=== PATIENT | female | born 1995 | race Caucasian/White ===

== ENCOUNTER → 2017-09-17 14:33 | Outpatient (CLI) | payer OTHER, SELFPAY ==
[2017-09-20 11:08] LABS: Neisseria gonorrhoeae, NAA Negative (Negative)
== END ==
PROVIDERS: PCP Nurse Practitioner Obstetrics & Gynecology; Visit Provider Nurse Practitioner Obstetrics & Gynecology
DX: Z20.2 Contact with and (suspected) exposure to infections with a predominantly sexual mode of transmission (principal)
CPT/HCPCS: 87491; 87591

== ENCOUNTER → 2020-12-30 11:10 | Outpatient (CLI) | payer OTHER, SELFPAY ==
[2020-12-30 11:56] LABS: Basophils % 0.2 % (0.1-2.0); Eosinophils % 0.2 % (0.1-12.0); Hematocrit 38.1 % (37.0-47.0); Hemoglobin 12.3 g/dL (12.2-16.2); Lymphocytes # 2.2 K/mm3 (0.7-4.5); Mean Corpuscular HGB Conc 32.4 g/dL (31.8-35.4); Mean Corpuscular Hemoglobin 29.1 pg (27.0-31.2); Mean Corpuscular Volume 89.8 fl (81-99); Mean Platelet Volume 7.5 fl (7.4-10.4); Monocytes # 0.5 K/mm3 (0.1-1.0); Monocytes % 5.4 % (1.7-9.3); Neutrophils # 6.5 K/mm3 (1.8-7.8); Neutrophils % 70.2 % (37.0-80.0); Platelet Count 368 K/mm3 (142-424); Red Blood Count 4.24 M/mm3 (4.20-5.40); White Blood Count 9.3 K/mm3 (4.8-10.8)
--- NOTE | 2020-12-30 13:16 | US_ITS ---
PROCEDURE: US OB <= 14 WEEKS FETUS CLINICAL INDICATION: for dates COMPARISON: No exams were available for comparison FINDINGS: An intrauterine gestational sac is present with a pole with a crown-rump length of 1.05cm correlating to gestational age of 7weeks 2days. heart tones are present with an FHR of 138bpm. Yolk sac is noted. Cysts are noted in the ovaries bilaterally, measuring up to 1.5 centimeters. IMPRESSION: Single viable intrauterine gestation with gestational age of 7 weeks and 2 days. Estimated due date by Ultrasound is 08/16/2021 Dictated by: Chata Garcia 12/30/2020 16:50 Chata Garcia in [facility] 12/30/2020 16:50
[2020-12-31 06:45] LABS: HIV Screen 4th Generation wRfx Non Reactive (Non Reactive)
[2021-01-01 10:43] LABS: HSV 1 IgG, Type Spec <0.91 index (0.00-0.90); Hepatitis B Surface Antigen Negative (Negative); Hepatitis C Antibody <0.1 s/co ratio (0.0-0.9); Rubella Antibodies, IgG 9.44 index (Immune >0.99)
[2021-01-01 10:44] LABS: Rapid Plasma Reagin Ab Titer Non Reactive (NonRea<1:1)
== END ==
PROVIDERS: PCP Nurse Practitioner Family; Visit Provider Nurse Practitioner Obstetrics & Gynecology
DX: Z34.90 Encounter for supervision of normal pregnancy, unspecified, unspecified trimester (principal); Z3A.08 8 weeks gestation of pregnancy
CPT/HCPCS: 36415; 76801; 85025; 86592; 86695; 86703; 86762; 86790; 86850; 87340; 87380; G0432

== ENCOUNTER → 2021-02-24 17:32 | Outpatient (CLI) | payer OTHER, SELFPAY ==
[2021-02-27 20:29] LABS: Neisseria gonorrhoeae, NAA Negative (Negative)
== END ==
PROVIDERS: Visit Provider Nurse Practitioner Obstetrics & Gynecology
DX: Z34.91 Encounter for supervision of normal pregnancy, unspecified, first trimester (principal); Z72.51 High risk heterosexual behavior
CPT/HCPCS: 87491; 87591

== ENCOUNTER → 2021-03-24 10:11 | Outpatient (CLI) | payer BC, SELFPAY ==
--- NOTE | 2021-03-24 10:12 | US_ITS ---
PROCEDURE: US OB /MATERNAL DETAIL CLINICAL INDICATION: 20 weeks gestation Anatomy exam COMPARISON: US US OB <= 14 WEEKS FETUS from 12/30/2020 FINDINGS: There is a single live fetus in cephalic presentation. The cervix is closed at 4 cm. The placenta is anterior and grade 1. Complete survey performed and was unremarkable on the submitted images as in PACS. No discrete anomalies identified on survey imaging by technologist. Active fetus. Three-vessel cord with satisfactory umbilical cord insertion. 4- chamber heart noted. Survey of brain & ventricles Unremarkable. Face and neck survey unremarkable. Diaphragm and chest views unremarkable. Abdomen: Both kidneys noted and unremarkable. Stomach noted and satisfactory. Spine: Survey of the spine satisfactory with no anomalies identified nor imaged. Both arms and legs noted. Amniotic Fluid: Adequate. Maternal adnexa: No significant findings. Measurements: Average ultrasound age 19weeks 4days. Gestational Age 19weeks 4days Estimated due date by ultrasound age 1208/14/2021. Estimated weight 304g BPD = 19weeks 3days OFD = 19weeks 2days HC = 18weeks 5days AC = 19weeks 2days FL = 20weeks 3days Growth Percentile= 67% Heart Rate = 142bpm Cerebellum = 19weeks 4days Humerus = 19weeks 6days HC/AC is 1.14 CI is 0.81 FL/BPD is 0.75 FL/AC is 0.24 IMPRESSION: Live IUP in cephalic presentation with an average ultrasound age of 19 weeks 4 days. No obvious anomalies. Please see above for detail. Dictated by: Kendell Kauffman MD 03/24/2021 12:56 Kendell Kauffman MD in [facility] 03/24/2021 12:56
== END ==
PROVIDERS: PCP Nurse Practitioner Family; Visit Provider Nurse Practitioner Obstetrics & Gynecology
DX: Z34.90 Encounter for supervision of normal pregnancy, unspecified, unspecified trimester (principal); Z3A.20 20 weeks gestation of pregnancy
CPT/HCPCS: 76811

== ENCOUNTER → 2021-05-19 09:13 | Outpatient (CLI) | payer BC, SELFPAY ==
[2021-05-19 09:40] LABS: Glucose,Fasting 82 mg/dl (74-100)
[2021-05-19 11:18] LABS: Glucose 1 Hour 121 mg/dL (74-100)
== END ==
PROVIDERS: Visit Provider Nurse Practitioner Obstetrics & Gynecology
DX: Z34.90 Encounter for supervision of normal pregnancy, unspecified, unspecified trimester (principal)
CPT/HCPCS: 36415; 82951

== ENCOUNTER → 2021-07-12 13:46 | Outpatient (CLI) | payer BC, SELFPAY | PROVIDERS: Visit Provider Nurse Practitioner Obstetrics & Gynecology | DX: Z34.90 Encounter for supervision of normal pregnancy, unspecified, unspecified trimester (principal); Z3A.35 35 weeks gestation of pregnancy | CPT/HCPCS: 86403 ==

== ENCOUNTER → 2021-08-06 14:09 | Outpatient (CLI) | payer BC, SELFPAY | PROVIDERS: Visit Provider Nurse Practitioner Obstetrics & Gynecology | DX: Z01.812 Encounter for preprocedural laboratory examination; Z11.52 Encounter for screening for COVID-19 | CPT/HCPCS: C9803; U0003; U0005 ==

== ENCOUNTER 2021-08-08 04:40 | Inpatient (IN) | payer BC, SELFPAY ==
[2021-08-08 04:44] VITALS: BMI 34.4
[2021-08-08 05:23] VITALS: BP 124/80; PULSE 90; RESP 20; TEMP 37.1; O2SAT 100; BMI 71.5
[2021-08-08 06:06] LABS: Basophils % 0.3 % (0.1-2.0); Eosinophils # 0.1 K/mm3 (0.0-0.4); Eosinophils % 0.9 % (0.1-12.0); Hematocrit 32.5 % (37.0-47.0); Lymphocytes # 2.7 K/mm3 (0.7-4.5); Lymphocytes % 29.9 % (10-50); Mean Corpuscular HGB Conc 33.9 g/dL (31.8-35.4); Mean Corpuscular Hemoglobin 28.7 pg (27.0-31.2); Mean Corpuscular Volume 84.6 fl (81-99); Mean Platelet Volume 8.3 fl (7.4-10.4); Monocytes # 0.5 K/mm3 (0.1-1.0); Monocytes % 5.6 % (1.7-9.3); Neutrophils # 5.6 K/mm3 (1.8-7.8); Neutrophils % 63.2 % (37.0-80.0); Platelet Count 332 K/mm3 (142-424); Red Blood Count 3.85 M/mm3 (4.20-5.40); White Blood Count 8.9 K/mm3 (4.8-10.8)
[2021-08-08 06:06] LABS: Coronavirus 19, PCR Not Detected (NotDetected); Influenza A, PCR Not Detected (NotDetected); Influenza B, PCR Not Detected (NotDetected)
[2021-08-08 06:38] LABS: Benzodiazepines Screen,Urine Negative ng/ml (<200)
[2021-08-08 06:39] LABS: Barbiturates Screen,Urine Negative ng/ml (<200)
[2021-08-08 06:40] LABS: Cannabinoid Screen,Urine Negative ng/ml (<50); Cocaine Screen,Urine Negative ng/ml (<300)
[2021-08-08 06:41] LABS: Methadone Screen,Urine Negative ng/ml (<300)
[2021-08-08 06:42] LABS: Opiate Screen,Urine Negative ng/ml (<300); Phencyclidine Screen,Urine Negative ng/ml (<25)
[2021-08-08 06:45] LABS: Amphetamine/Metha Screen,Urine Negative ng/ml (<1000)
--- NOTE | 2021-08-08 08:36 | HMH.LABNOT ---
Labor Note - Subjective: Date: 08/08/21 Time: 08:36 regular contraction - Objective: NST:: Reactive Contractions:: every 2-3 minutes Cervical Dilation:: 2-3 Effacement:: 75% Station: -2 Membranes: artificially ruptured - Fetus: Monitoring?: Yes monitoring type:: Internal and External Comment:: She continues to do well. We ruptured her membranes and there was clear fluid. I inserted IPC. - Assessment: Labor progressing?: Yes Cephalopelvic disproportion?: No Patient Problems: All Active Problems (Acute) - Plan: Anesthesia for epidural?: Yes Continue to labor down?: Yes Plan for ?: No Continue to monitor?: Yes Start pushing?: No
--- NOTE | 2021-08-08 08:44 | HMH.OBAPHP ---
OB - H&P: HPI Antepartum - History of Present Illness Chief complaint: Term History of present illness: She is a 25-year-old 2 para 1 at 39+ weeks gestational age. She has been having a few contractions and pressure and as result of that we elected to induce her labor at term. - History of Present Criteria for establishing EDC:: LMP confirmed by 1st trimester US care: good care Ultrasounds: normal 1st trimester US, normal mid trimester US Obstetrical complications: none Medical complications: none - Labs Blood type: B (+) positive Rubella: immune RPR/VDRL: nonreactive GBS status: positive HBsAG: negative [facility] History I have reviewed the patient's past medical history: Yes Medical History: Reports:: Depression Denies:: Anxiety, Migraine, Seizures *Have you ever received a pneumonia vaccine?: No *Have you received a flu vaccine this season?: No Other Surgeries: Yes: No Previous Surgery. No: Amputation: No Fractures: No - *Social History Smoking Status: Never smoker Alcohol Intake: never Alcohol Intake Frequency:: holidays/special occasions only Substance Use Type: denies use *Occupational Status:: employed *Travel in the last 8 weeks: None - Psychiatric History Pschychiatric History:: Reports:: Depression Denies:: Anxiety Family Hx:: Hypertension, Hyperlipidemia, Cancer SALES AND MARKETING COORDINATOR history: no No SALES AND MARKETING COORDINATOR history, no Non-contributory, no Spontaneous , no Therapeutic , no Cervical Cancer, no Abnormal Uterine Bleeding, no Ovarian Cancer, no dysfunctional uterine bleed, no Endometriosis, no Ectopic , no Polycystic Ovary Syndrome, no Uterine Fibroids, no Tubal Ligation, no , no Failure to Progress, no Additional SALES AND MARKETING COORDINATOR History Para: 1 Review of Systems - Review of Systems Review of systems:: pertinent systems reviewed and negative unless documented below Meds Home Medications Medication Instructions Recorded Confirmed Type Citalopram Hydrobromide 10 mg PO DAILY 08/08/21 History [Citalopram HBr] Pnv No.153/FA/Om3/Dha/Epa/Fish 1 tab PO DAILY 08/08/21 History [ Gummies] Valacyclovir HCl [Valacyclovir] 500 mg PO DAILY 08/08/21 History Allergies Allergy/AdvReac Type Severity Reaction Status Date / Time No Known Allergies Allergy Verified 08/04/21 09:45 OB - H&P: Exam - Physical Exam Vital signs: Temp Pulse Resp BP Pulse Ox 98.8 F 90 20 124/80 100 08/08/21 05:23 08/08/21 05:23 08/08/21 05:23 08/08/21 05:23 08/08/21 05:23 - Constitutional no acute distress - Routine HEENT Exam Head: Present: normocephalic Eye: Present: EOMI, PERRL ENT: Present: mucous membranes moist - Routine Neck Exam Present: supple, full ROM - Routine Respiratory Exam Absent: accessory muscle use (good air entry bilaterally), respiratory distress, wheezes, crackles - Routine Cardiovascular Exam Present: RRR. Absent: murmur - Routine Abdominal Exam Present: soft, normoactive bowel sounds. Absent: tenderness, distended, guarding - Routine Rectal Exam Patient deferred: visual exam, digital exam - Routine Exam Patient deferred: external exam, groin exam, perineal exam - Routine Extremities Exam Present: full ROM. Absent: cyanosis, edema - Routine Skin Exam Present: intact. Absent: cyanosis - Routine Neurological Exam Present: alert, oriented X3 - Routine Psychiatric Exam Present: normal affect OB - Results - Labs Labs: Short CBC 08/08/21 Range/Units 05:15 WBC 8.9 (4.8-10.8) K/mm3 Hgb 11.0 L (12.2-16.2) g/dL Hct 32.5 L (37.0-47.0) % Plt Count 332 (142-424) K/mm3 OB - A/P Antepartum (1) Normal delivery at term Status: Acute - Additional Plan Planning to breastfeed?: Yes Plan: induction Additional Information:: We have ruptured her membranes and she is on oxytocin. We will expect a vaginal delivery.
--- NOTE | 2021-08-08 11:00 | HMH.ANESCL ---
[facility] Anesthesia Checklist - Patient Identification Patient Identification: Arm Band - Structural Data Admitted From: Home Planned Operative Procedure/s: labor epidural Consent for Planned Operative Procedure(s) Verified: Yes Verified Documents: Surgical Consent, History and Physical - NPO Status Verified Time NPO: 00:00 - Additional verifications Anesthesia Reactions: No - Airway Assessment C-Spine Mobility Assessed: Yes (mp2) TMJ Mobility Assessed: Yes Dentition: Good Dentition - Neurological Assessment Level of Consciousness: Awake, Alert - Anesthesia Plan Anesthesia Risk discussed: Yes Anesthesia Plan: Verified ASA Class: II Anesthesia Type: Epidural [facility] History I have reviewed the patient's past medical history: Yes Medical History: Reports:: Depression Denies:: Anxiety, Migraine, Seizures *Have you ever received a pneumonia vaccine?: No *Have you received a flu vaccine this season?: No Anesthesia experience/problems:: nac Other Surgeries: Yes: No Previous Surgery. No: Amputation: No Fractures: No - *Social History Smoking Status: Never smoker Alcohol Intake: never Alcohol Intake Frequency:: holidays/special occasions only Substance Use Type: denies use *Occupational Status:: employed *Travel in the last 8 weeks: None - Psychiatric History Pschychiatric History:: Reports:: Depression Denies:: Anxiety Family Hx:: Hypertension, Hyperlipidemia, Cancer WOOD DOWEL MACHINE OPERATOR history: no No WOOD DOWEL MACHINE OPERATOR history, no Non-contributory, no Spontaneous , no Therapeutic , no Cervical Cancer, no Abnormal Uterine Bleeding, no Ovarian Cancer, no dysfunctional uterine bleed, no Endometriosis, no Ectopic , no Polycystic Ovary Syndrome, no Uterine Fibroids, no Tubal Ligation, no , no Failure to Progress, no Additional WOOD DOWEL MACHINE OPERATOR History Para: 1
--- NOTE | 2021-08-08 11:16 | HMH.LABNOT ---
Labor Note - Subjective: Date: 08/08/21 Time: 11:16 regular contraction - Objective: NST:: Reactive Contractions:: every 2-3 minutes Cervical Dilation:: 4 Effacement:: 80% Membranes: artificially ruptured - Fetus: Monitoring?: Yes monitoring type:: Internal and External - Assessment: Labor progressing?: Yes Cephalopelvic disproportion?: No Patient Problems: All Active Problems Normal delivery at term (Acute) (Acute) - Plan: Anesthesia for epidural?: Yes Continue to labor down?: Yes Plan for ?: No Continue to monitor?: Yes Start pushing?: No
--- NOTE | 2021-08-08 13:57 | HMH.LABNOT ---
Labor Note - Subjective: Date: 08/08/21 Time: 13:57 regular contraction - Objective: NST:: Reactive Contractions:: every 2-3 minutes Cervical Dilation:: 4-5 Effacement:: 90% Station: -2 Membranes: artificially ruptured - Fetus: Monitoring?: Yes monitoring type:: Internal and External - Assessment: Labor progressing?: Yes Cephalopelvic disproportion?: No Patient Problems: All Active Problems Normal delivery at term (Acute) (Acute) - Plan: Anesthesia for epidural?: Yes Continue to labor down?: Yes Plan for ?: No Continue to monitor?: Yes Start pushing?: No
[2021-08-08 15:39] LABS: Microscopic, Urine URINE MICROSCOPIC (MICROSCOPIC)
[2021-08-08 15:42] LABS: Appearance,Urine SL CLOUDY (Clear); Bilirubin,Urine Negative (Negative); Blood, Urine Negative (Negative); Color,Urine YELLOW (Yellow); Glucose,Urine (UA) Negative (Negative); Ketones,Urine Negative (Negative); Leukocyte Esterase,Urine Negative (Negative); Nitrate,Urine Negative (Negative); Protein,Urine TRACE (Negative); Specific Gravity, Urine >= 1.030 (1.005-1.030); Urobilinogen,Urine 0.2 EU/dl (0.2)
[2021-08-08 15:54] LABS: Bacteria,Urine Trace /lpf; RBC,Urine Occasional #/hpf (0-3)
--- NOTE | 2021-08-08 16:20 | HMH.LABNOT ---
Labor Note - Subjective: Date: 08/08/21 Time: 16:20 regular contraction - Objective: NST:: Reactive Contractions:: every 2-3 minutes Cervical Dilation:: 6 Effacement:: 90% Station: -1 Membranes: artificially ruptured - Fetus: Monitoring?: Yes monitoring type:: Internal and External - Assessment: Labor progressing?: Yes Cephalopelvic disproportion?: No Patient Problems: All Active Problems Normal delivery at term (Acute) (Acute) - Plan: Anesthesia for epidural?: Yes Continue to labor down?: Yes Plan for ?: No Continue to monitor?: Yes Start pushing?: No
--- NOTE | 2021-08-08 17:40 | HMH.DN ---
- Delivery Note Delivery Date:: 08/08/21 Delivery Time:: 17:29 Anesthesia Type: Epidural Was labor medically induced?: Yes Induction method: per misoprostol protocol Gestational age (weeks): 39 Infant delivered prior to 39 weeks?: No Infant Gender: Female at 1 minute: 8 at 5 minutes: 9 LAC or MLE?: LAC Delivery Procedure:: She is a 25-year-old 2 para 1 at 39 weeks gestational age. She had some contractions and pressure and as result of that we elected to induce her labor at term. She was started on IV oxytocin had her membranes ruptured. Under labor epidural progressed to full dilation and delivered spontaneously a liveborn female child at 5:29 PM in the evening of 08/08/2021. On deliver the head the anterior shoulder then easily delivered followed by the rest the infant's body atraumatically. The baby was vigorous. We allowed the cord to continue to pulsate for approximately 1 minute. The baby's oropharynx and nasopharynx were bulb suctioned. After 1 minute the cord was doubly clamped and cut and the infant was placed on the mother's abdomen for further care. The nurse assigned Apgars of 8 at 1 minute and 9 at 5 minutes. We then obtained cord blood. She had a small left labial tear that was repaired with interrupted 3-0 Vicryl Rapide suture. She received IV oxytocin using gentle traction on the cord and countertraction on the fundus I was able to easily deliver the placenta at 5:34 PM. He had a normal three-vessel cord. She has been positive blood, she is rubella immune and was group B streptococcus positive. She did receive IV antibiotics while in labor. Estimated blood loss was approximately 150 cc. Laceration:: labial Placental Delivery Description: Spontaneous
[2021-08-08 19:57] VITALS: BP 139/80; PULSE 77; RESP 16; TEMP 36.8; O2SAT 97
[2021-08-09 03:42] VITALS: BP 134/86; PULSE 75; RESP 18; TEMP 36.9; O2SAT 99
[2021-08-09 07:52] VITALS: BP 130/75; PULSE 77; RESP 18; TEMP 36.7; O2SAT 99
[2021-08-09 08:39] LABS: Hematocrit 32.2 % (37.0-47.0); Hemoglobin 10.6 g/dL (12.2-16.2)
[2021-08-09 12:19] VITALS: BP 114/73; PULSE 69; RESP 16; TEMP 36.6; O2SAT 99
--- NOTE | 2021-08-09 12:27 | P.PN_ITS ---
Internal Medicine - PN: Subj *Date: 08/09/21 *Time: 12:27 Interval history: She is 1 day from a vaginal delivery. She is doing very well. We will plan to send her home tomorrow. She is bottlefeeding. Her lochia is normal. Exam Vital signs and Labs for Last 24 Hours: Temp Pulse Resp BP Pulse Ox 98.0 F 77 18 130/75 99 08/09/21 07:52 08/09/21 07:52 08/09/21 07:52 08/09/21 07:52 08/09/21 07:52 Laboratory Results - last 24 hr 08/08/21 05:20: Urine Color Yellow, Urine Appearance Sl cloudy, Urine pH 6.0, Ur Specific Marshall >= 1.030, Urine Protein Trace, Urine Glucose (UA) Negative, Ur ine Ketones Negative, Urine Blood Negative, Urine Nitrate Negative, Urine Bilirubin Negative, Urine Urobilinogen 0.2, Ur Leukocyte Esterase Negative, Urine RBC Occasional, Urine WBC 3-5, Ur Squamous Epith Cells 3-5, Urine Bacteria Trace 08/09/21 08:25: Hgb 10.6 L, Hct 32.2 L I & O for Last 24 hours: Intake & Output 08/07/21 08/08/21 08/09/21 08/10/21 11:59 11:59 11:59 11:59 Weight 443 lb 2.066 oz - Constitutional no acute distress - *Routine HEENT Exam Head: Present: normocephalic Eye: Present: EOMI, PERRL ENT: Present: mucous membranes moist Assessment and Plan (1) Normal delivery at term Status: Acute Category: Medical Code(s): O80 - Encounter for full-term uncomplicated delivery - Assessment and plan all Dx Assessment and Plan for all problems:: She continues to do well. She is bottlefeeding. We will plan to send her home tomorrow.
[2021-08-09 15:42] VITALS: BP 124/80; PULSE 68; RESP 18; TEMP 36.7; O2SAT 99
[2021-08-09 20:15] VITALS: BP 118/65; PULSE 65; RESP 18; TEMP 36.7; O2SAT 98
[2021-08-10 04:14] VITALS: BP 144/69; PULSE 71; RESP 17; TEMP 36.6; O2SAT 100
--- NOTE | 2021-08-10 09:58 | P.DS_ITS ---
General - General Admission date:: 08/08/21 Discharge date: 08/10/21 HPI - History of Present Illness History of present illness: She is a 25-year-old 2 para 1 at 39 and 4 weeks gestational age. She was feeling pressure so we elected to induce her labor at term. Hospital Course Hospital Course: She was started on IV oxytocin had her membranes ruptured. She progressed to f ull dilation under labor epidural. She delivered spontaneously a liveborn female child at 5:29 PM in the afternoon of August 08, 2021. The baby weighed 7 pounds 1 ounce and was 19 inches long. She had Apgars of 8 at 1 minute and 9 at 5 minutes. She was group B streptococcus positive and did receive IV antibiotics while in labor. She has B Rh+ blood, she is rubella immune and was group B streptococcus positive. Her telecommunications sales representative Dr. Adams. She is discharged home to follow-up with me in approximately 2 weeks time. She was given the usual instructions with respect to limiting her activity, driving and sexual activity. Her condition on discharge is stable and improved. She is bottlefeeding. Rhogam Administration: Not Indicated Objective Vital signs: Temp Pulse Resp BP Pulse Ox 97.8 F 71 17 144/69 H 100 08/10/21 04:14 08/10/21 04:14 08/10/21 04:14 08/10/21 04:14 08/10/21 04:14 no acute distress - *Routine HEENT Exam Head: Present: normocephalic Eye: Present: EOMI, PERRL ENT: Present: mucous membranes moist DS: Diagnosis - Discharge Diagnosis (1) Normal delivery at term Status: Acute (2) Mother positive for group B Streptococcus colonization Status: Acute Discharge Plan - Patient Discharge Instructions ACTIVITY: No heavy lifting DIET: continue same diet Additional Instructions: Nothing in the vagina for 6weeks No tub baths Drink plenty of fluids No heavy lifting No strenuous activity Patient Instructions: Depression, Hemorrhage, DI for Labor and Delivery, Vaginal , DI for Pre-eclampsia, [facility] Post Discharge Instructions, Preventing the Spread of Coronavirus Discharge Instructions - Follow up Plan Follow up with: Giancarlo Robles MD [Staff Physician] - Disposition: Home, Self-Care Condition at discharge:: Stable Home Medications: Home Medications Medication Instructions Recorded Confirmed Type Citalopram Hydrobromide 10 mg PO DAILY 08/08/21 08/08/21 History [Citalopram HBr] Pnv No.153/FA/Om3/Dha/Epa/Fish 1 tab PO DAILY 08/08/21 08/08/21 History [ Gummies] Valacyclovir HCl [Valacyclovir] 500 mg PO DAILY 08/08/21 08/08/21 History Prescriptions/Medication Reconciliation: Continued Valacyclovir HCl [Valacyclovir] 500 mg PO DAILY Pnv No.153/FA/Om3/Dha/Epa/Fish [ Gummies] 1 tab PO DAILY Citalopram Hydrobromide [Citalopram HBr] 10 mg PO DAILY - Problem Reconciliation Problems Reviewed?: Yes
== END 2021-08-10 11:15 | disposition home or self-care (01) | DRG 807 ==
PROVIDERS: Admitting Provider Nurse Practitioner Obstetrics & Gynecology; Referring Provider Nurse Practitioner Obstetrics & Gynecology; Visit Provider Nurse Practitioner Obstetrics & Gynecology
DX: O69.81X0 Labor and delivery complicated by cord around neck, without compression, not applicable or unspecified (principal); Z37.0 Single live birth; Z3A.39 39 weeks gestation of pregnancy; O99.824 Streptococcus B carrier state complicating childbirth; O99.344 Other mental disorders complicating childbirth; F32.A Depression, unspecified; O70.0 First degree perineal laceration during delivery
CPT/HCPCS: 59409; 36415; 59025; 80305; 81001; 85014; 85018; 85025; 86850; 94761; C1758; C9803; G0283; J0290; J2405; U0003; U0005

== ENCOUNTER 2022-04-26 10:10 | Day surgery (SDC) | payer OTHER, SELFPAY ==
[2022-04-26] VITALS (9 sets, daily range): BP systolic 115–142; BP diastolic 69–87; PULSE 82–103; RESP 16–20; TEMP 36.3–36.9; O2SAT 99–100; BMI 31.2
[2022-04-26 10:49] LABS: Coronavirus 19, PCR Not Detected (NotDetected); Influenza A, PCR Not Detected (NotDetected); Influenza B, PCR Not Detected (NotDetected)
[2022-04-26 10:58] LABS: Basophils % 0.3 % (0.1-2.0); Eosinophils # 0.1 K/mm3 (0.0-0.4); Eosinophils % 1.1 % (0.1-12.0); Hematocrit 42.3 % (37.0-47.0); Hemoglobin 12.9 g/dL (12.2-16.2); Lymphocytes # 2.2 K/mm3 (0.7-4.5); Lymphocytes % 29.4 % (10-50); Mean Corpuscular HGB Conc 30.5 g/dL (31.8-35.4); Mean Corpuscular Hemoglobin 28.1 pg (27.0-31.2); Mean Corpuscular Volume 92.1 fl (81-99); Mean Platelet Volume 7.3 fl (7.4-10.4); Monocytes # 0.3 K/mm3 (0.1-1.0); Monocytes % 4.6 % (1.7-9.3); Neutrophils # 4.8 K/mm3 (1.8-7.8); Neutrophils % 64.6 % (37.0-80.0); Platelet Count 341 K/mm3 (142-424); Red Blood Count 4.59 M/mm3 (4.20-5.40); Red Cell Distribution Width 12.5 % (11.5-17.5); White Blood Count 7.4 K/mm3 (4.8-10.8)
[2022-04-26 10:59] LABS: Urine Pregnancy, HCG Qual. Negative (Negative)
[2022-04-26 11:01] LABS: Chloride 106 mmol/L (98-107); Sodium 138 mmol/L (136-145)
[2022-04-26 11:02] LABS: Potassium 4.1 mmoL/L (3.5-5.1)
[2022-04-26 11:04] LABS: Blood Urea Nitrogen 17 mg/dl (7-17); Estimated Glomerular Filt Rate 119 ml/min (>60); GFR (African American) 144 ML/MIN (>60)
[2022-04-26 11:05] LABS: Anion Gap 11.1 mEq/L (5-15); Calcium 8.4 mg/dl (8.4-10.2); Carbon Dioxide 25 mmol/L (22.0-30.0); Glucose 90 mg/dl (74-100)
--- NOTE | 2022-04-26 15:20 | EXP.OP.NOTE ---
Date of procedure: 04/26/22 Pre-op Diagnosis:: Perianal abscess Post-op Diagnosis:: Same Procedure performed:: Incision and drainage perianal abscess Surgeon:: Rufus Resendiz MD LICENSED DIRECT ENTRY MIDWIFE:: Other Anesthesia: LMA Estimated blood loss (mL): 5 Clinical Note:: Patient is a 26-year-old female from [facility] who had presented to her primary care provider's office in [place] yesterday.? She had developed some postprandial nausea and loose stools several weeks ago.? Loose stools had resolved but she continued with nausea and had some rectal discomfort which was worse when she was sitting or having bowel movements.? Denied any rectal bleeding.? No history of constipation.? She was evaluated in the [place] office yesterday and found to have what appeared to be perirectal abscess.? She was scheduled for urgent surgical evaluation.? She was placed on levofloxacin and metronidazole. Patient was seen and examined in the office. She had what appeared to be perianal abscess with some minuscule drainage from excoriated skin in the left posterior lateral location. It was markedly tender and somewhat indurated with erythema. Plan was made for incision and drainage Operative findings:: She had what appeared to be mostly drained abscess cavity. This was superficial. Operative note:: Patient was taken the operating room. She was positioned in supine position. She was repositioned in lithotomy position. The area was prepped and draped in the standard surgical fashion. There is an area of excoriated skin where there was some minor serous and purulent drainage. 18-gauge needle was inserted and there was no purulent aspiration. Tiny limited incision was made with 11 blade. There was some bloody drainage. Wound was probed. There appeared to be essentially drained abscess cavity. Incision was opened somewhat to allow for inspection of the abscess cavity. There was no evidence of any residual purulent drainage. Wound was thoroughly irrigated. Hemostasis was achieved with limited use of electrocautery. The wound was packed with some half-inch plain gauze. Clean dry sterile dressing was applied. Condition: stable Disposition: PACU Specimens:: None Complications:: None immediately apparent
--- NOTE | 2022-04-26 15:42 | EXP.ANES.CKL ---
[facility] Medical History (Updated 04/26/22 @ 13:39 by Malia Mann RN) Arthritis History of anemia Perirectal abscess Urinary tract infection Surgical History (Updated 04/26/22 @ 13:37 by Malia Mann RN) No significant past surgical history Family History (Updated 04/26/22 @ 13:41 by Malia Mann RN) Family/Other Colon cancer Father Hypertension Mother Hypertension Hyperlipidemia Social History (Updated 04/26/22 @ 13:44 by Malia Mann, RN) Smoking Status: Former smoker years smoked: 10 smoking status stop date: 11/2020 second hand exposure: No alcohol intake: current substance use type: denies use current occupational status: employed Travel in the last 8 weeks: None [facility] Anesthesia Checklist Patient Identification Patient Identification: Arm Band Structural Data Admitted From: Home Planned Operative Procedure/s: General Anesthesia with LMA Consent for Planned Operative Procedure(s) Verified: Yes Verified Documents: Surgical Consent and History and Physical NPO Status Verified Time NPO: 00:09 Additional verifications Anesthesia Reactions: No Hx Blood Transfusions: No Blood Transfusion Reaction: No Cephalosporin Allergy: No Previous Colonoscopy: No Cardiovascular Assessment Pulse Rhythm: Regular Peripheral Edema: No Airway Assessment C-Spine Mobility Assessed: Yes TMJ Mobility Assessed: Yes Dentition: Good Dentition Neurological Assessment Level of Consciousness: Awake, Alert, Appropriate and Follows Commands Hx Seizures: No Numbness or tingling in extremities: No Genitourinary Assessment Voided home demonstration agent to O.R.: Yes Anesthesia Plan Anesthesia Risk discussed: Yes ASA Class: I Anesthesia Type: General
--- NOTE | 2022-04-26 15:46 | EXP.ANES.I ---
[facility] Anesthesia Record Part I Anesthesia Record I Intake, IV Amount: 600 Estimated blood loss (mL): 5 Urine output (mL): 0 Blood Products used (#): none Blood Pressure: 124/82 SaO2: 100 Pulse Rate: 103 Respiratory Rate: 20 Temperature: 97.4 F Patient is:: Awake and Stable Stable to PACU at:: 15:25
--- NOTE | 2022-04-26 15:57 | SUR.PHASEI ---
1554- detailed report called to shobha murphy in post op 1556- pt in stable condition with shobha murphy in post op, dressings CDI, all vitals stable
--- NOTE | 2022-04-27 08:08 | EXP.ANES.II ---
[facility] Anesthesia Record Part II Anesthesia Record Part II Discharge Time: 15:55 Destination: Surgical Day Care (OP Surgery) PACU nurse assessment reviewed?: Yes Patient Condition:: Good Anesthesia Complications:: None Swallowing reflex intact?: Yes Cyanosis?: No Blood Pressure: 132/77 Pulse Rate: 92 Temperature: 97.4 F Mental Status: Alert & Oriented Pain level:: 0 Nausea and/or vomitting:: None Intake, IV Amount: 0
[2022-04-27 08:09] VITALS: BP 132/77; PULSE 92; TEMP 36.3
== END 2022-04-26 15:56 | disposition home or self-care (01) ==
PROVIDERS: PCP Nurse Practitioner; Visit Provider Surgery
PROC: (CPT 46050; principal; 2022-04-26 13:45)
DX: K61.0 Anal abscess (principal); Z79.899 Other long term (current) drug therapy
CPT/HCPCS: 46050; 36415; 80048; 81025; 85025; 96374; C9803; J2405; U0003; U0005

== ENCOUNTER → 2022-06-25 11:25 | Outpatient (CLI) | payer OTHER, SELFPAY | PROVIDERS: PCP Nurse Practitioner; Visit Provider Nurse Practitioner | DX: N30.01 Acute cystitis with hematuria (principal); B96.29 Other Escherichia coli [E. coli] as the cause of diseases classified elsewhere | CPT/HCPCS: 87086; 87088; 87186 ==